=== PATIENT | female | born 1980 | race Caucasian/White ===

== ENCOUNTER → 2018-11-09 | Outpatient (CLI) | payer OTHER | LOC: EH 16:03 → RAD 16:03 | DX: Z02.1 Encounter for pre-employment examination (principal) ==

== ENCOUNTER 2019-08-25 12:52 | Inpatient (IN) | payer OTHER ==
[~2019-08-25] VITALS: Ht 167.6 cm; Wt 72.6 kg
[~2019-08-25 12:52] MED LIST: ASA81BEC PO; CARVEDILOL3.125 MG PO; COZAAR 50 MG TA50 M1 PO; KEPPRA 500 MG500 M1 PO; MINOCIN50 MG PO; PACERONE 200 M200 M1 PO; PEPCID20 MG PO; PREDNISONE 20 M20 M1 PO; VITAMIN B-1100 M2 PO
[2019-08-25] MEDS ORDERED: POTASSIUM CHLO10 ME1 PO (12:54)
--- NOTE | 2019-08-25 16:06 | NUR ---
PT ARRIVED AT 1520 FROM CCU. VITALS REMAIN STABLE. PT DENIES PAIN AT THIS TIME. PT ALERT AND ORIENTED *4. LEFT CHEST INCISION (PACEMAKER SITE) HEALING, SITE IS INTACT AND NO DRAINAGE NOTED. PT UP WITH 1 SBA, GB AND TOLERATED WELL. HOURLY ROUNDING. Q1H VISUAL CHECKS. CALL LIGHT WITHIN REACH
[2019-08-25 17:06] VITALS: BP 110/74
[2019-08-25 19:43] VITALS: BP 118/67
--- NOTE | 2019-08-26 03:02 | NUR ---
UP TO BATHROOM WITH STANDBY ASSIST, IMMOBILIZER IN PLACE. ICD PACEMAKER WITH DERMABOND OPEN TO AIR, DRY, AND INTACT. RIGHT FOREARM SALINE LOCK CDI.
[2019-08-26 06:24] LABS: HEMATOCRIT 32.6 % (37.0-47.0); HEMOGLOBIN 10.8 gm/dL (12.0-15.0); MCH 39.2 pg (26.0-34.0); MCHC 33.2 g/dL (28.0-37.0); RBC 2.76 mil/uL (4.20-5.00); RDW 13.7 % (10.5-14.5); WBC 5.7 thou/uL (4.0-11.0)
[2019-08-26 06:41] LABS: CALCIUM 9.2 mg/dL (8.5-10.1); POTASSIUM 3.4 mmol/L (3.5-5.1)
[2019-08-26 10:15] VITALS: BP 116/81
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
--- NOTE | 2019-08-26 15:59 | NUR ---
ASSUMED CARES AT 0700. PT AWAKE, ALERT AND ORIENTED*4. C/O MILD LEFT CHEST DISCOMFORT (AROUND ICD SITE). ICD SITE RED, PROVIDER AWARE AND ORDERS RECEIVED. LEFT ARM IMMOBILIZER ON WITH ACTIVITY. PT PARTCIPATED IN ALL THERAPIES AND TOLERATED WELL. Q1H VISUAL CHECKS. CALL LIGHT WITHIN REACH. FALL PRECAUTIONS IN PLACE
[2019-08-26 19:50] VITALS: BP 108/73
--- NOTE | 2019-08-27 03:17 | NUR ---
ASSESSED AT START OF SHIFT A&O4. ICD DRESSING IN LFT UPPER CHEST CAHNGED AND NEW DRESSING INTACT SIGHT LOOKED SLIGHTLY RED. PT UP TO THE BATHROOM WITH SBA. IMMOBILIZER BRACE ON FOR THE NIGHT. WILL CONT TO MONITOR TILL EOS.
[2019-08-27 08:00] VITALS: BP 109/69
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
[2019-08-27 19:54] VITALS: BP 118/62
--- NOTE | 2019-08-28 00:03 | NUR ---
PT ALERT AND ORIENTED X 4. MODIFIED INDEPENDENT IN ROOM WITHOUT DIFFICULTY. LEFT CHEST PACEMAKER INCISION C/D/I. GAUZE DRESSING PLACED OVER INCISION AT HS. LEFT ARM IMMOBILIZER ON. PT DENIES PAIN OR DISCOMFORT. SLEEPING PILL GIVEN AT HS. PT APPEARS TO BE SLEEPING ON HOURLY ROUNDS.
[2019-08-28 10:40] VITALS: BP 106/63
--- NOTE | 2019-08-28 10:47 | NUR ---
ASSUMED CARES AT 0700. REPORTS SLEPT GOOD LAST NIGHT WITH BENADRYL. NO BENADRYL ORDER TONIGHT. PT REPORTS HAS DIFFICULTY TO SLEEP AT NIGHT. PT AWAKE, ALERT AND ORIENTEDX4. ABLE TO VOICE HER NEEDS WITH ENCOURAGEMENT. C/O MILD LEFT CHEST DISCOMFORT (AROUND ICD SITE). RATES PAIN 3/10, HAS NO ORDER FOR TYLENOL.ICD SITE RED BUT INTACT. LEFT ARM IMMOBILIZER ON WITH ACTIVITY. PT PARTCIPATED IN ALL THERAPIES AND TOLERATED WELL. OFFERED SUPPORTIVE CARE. ENCOURAGE PT TO VOICE HER NEEDS. PT'S BS HAS BEEN STABLE. LAST DOSE STEROID WILL BE TOMORROW. HAS IV ON LEFT FA. CONTINUE TO BE ON CEFTRIAXONE. CALLED AND ASKED DR. BUCIO HOW LONG PT HAS TO BE ON IV ABT. HE WILL LOOK INTO IT. OBTAINED ORDER TO D/C ACHS. PRN TYLENOL AND MELATONIN FOR TONIGHT. PT UP M.I IN ROOM. REASSESSMENT PER CHART. REPORT HAD BM THIS AM. SKIN INTACT, JUST HAS BRUISES ON BOTH ARMS. MORNING MEDS GIVEN WITH YOGURT. PRN TYLENOL GIVEN. DISCUSSED ABOUT CARE PLAN FOR TODAY AND INFORMED PT ABOUT SLEEPING PILL TONIGHT HAS BEEN ORDERED. Q1H VISUAL CHECKS. CALL LIGHT WITHIN REACH. WILL CONTINUE TO MONITOR.
--- NOTE | 2019-08-28 20:00 | NUR ---
OFFERED AND ACCEPTED MOVE TO A ROOM (501) FURTHER AWAY FROM NURSE STATION. PLAN TO GIVE MELATONIN 5 MG AND WE WILL ASK IN THE MORNING IF SHE HAS HAD A BETTER NIGHT'S SLEEP. AMBULATED TO HE NEW ROOM AND IS MODIFIED INDEPENDENT IN ROOM
[2019-08-28 20:51] VITALS: BP 103/63
[2019-08-29 09:05] VITALS: BP 115/73
--- NOTE | 2019-08-29 15:23 | NUR ---
ASSUMED CARE AT 0700, PT A&O X 4, NO ACUTE DISTRESS NOTED. VS STABLE, O2 WNL ON RA. MOD-I IN ROOM, AMBULATES WITHOUT ASSISTANCE. IV TO RFA, PACEMAKER TO L CHEST INTACT, IMMOBILIZER TO L ARM. PT TOLERATES [facility] SOFT DIET AND MEDS IN YOGHURT. LAST BM 08/28/19. BED IN LOWEST POSITION, CALL LIGHT WITHIN REACH, WILL CONTINUE TO MONITOR PER POC.
[2019-08-29 20:00] VITALS: BP 98/63
--- NOTE | 2019-08-30 01:58 | NUR ---
PT ASSESSMENT DONE AND VSS. MEDS GIVEN AND VSS. WEARING INOBILIZER ON L ARM OVERNIGHT. MOD I. HOURLY ROUNDING. CALL LIGHT IN PLACE. WILL CONTINUE TO MONITOR.
[2019-08-30 07:30] VITALS: BP 130/86
[2019-08-30 08:49] VITALS: BP 130/86
--- NOTE | 2019-08-30 09:01 | NUR ---
ASSUMED CARES AT 0700. REPORTS DIDN'T SLEEP WELL LAST NIGHT TOOK MELATONIN 5MG MAY ASK DOCTOR TO ADJUST SLEEPING AID. PT AWAKE, ALERT AND ORIENTEDX4. ABLE TO VOICE HER NEEDS WITH ENCOURAGEMENT. C/O MILD LEFT CHEST DISCOMFORT (AROUND ICD SITE). RATES PAIN 2/10 AND HEADACHE 4/10, PRN TYLENOL GIVEN. ICD SITE RED BUT INTACT. CONTINUE TO BE ON IV CEFTRIAXONE. IV WAS OUT LAST NIGHT. WILL ASK DOCTOR TO SEE IF SHE STILL NEED TO BE ON IV ABT. PT IS A HARD STICK. LEFT ARM IMMOBILIZER ON WITH ACTIVITY. HER GOAL IS TO PARTCIPATE IN ALL THERAPIES. OFFERED SUPPORTIVE CARE. ENCOURAGE PT TO VOICE HER NEEDS. MEDS GIVEN WITH YOGURT AND TOLERATE WELL. CONTINUE TO BE ON [facility]. SHE WISHES TO BE UPGRADE HER DIET TODAY.PT UP TO DINNING ROOM FOR BREAKFAST. REQUESTS IF SHE CAN BE M.I IN THE UNIT WELL. Q1H VISUAL CHECKS. CALL LIGHT WITHIN REACH. WILL CONTINUE TO MONITOR.
[2019-08-30 12:08] LABS: HEMATOCRIT 44.2 % (37.0-47.0); HEMOGLOBIN 14.4 gm/dL (12.0-15.0); MCH 38.2 pg (26.0-34.0); MCHC 32.5 g/dL (28.0-37.0); MCV 117.6 fL (80.0-100.0); RBC 3.76 mil/uL (4.20-5.00); RDW 13.4 % (10.5-14.5); WBC 8.2 thou/uL (4.0-11.0)
[2019-08-30 12:20] LABS: CALCIUM 9.9 mg/dL (8.5-10.1); CREATININE 1.2 mg/dL (0.6-1.0); POTASSIUM 3.9 mmol/L (3.5-5.1)
[2019-08-30 19:08] VITALS: BP 90/54
--- NOTE | 2019-08-30 23:50 | NUR ---
PT ASSESSMENT DONE AND VSS. MEDS GIVEN AND WELL TOLERATED. MOD I IN ROOM. SLEEPING BETTER WITH STRONGER DOSE OF MELATONIN. HOURLY ROUNDING. CALL LIGHT IN REACH. WILL CONTINUE TO MONITOR.
[2019-08-31 07:30] VITALS: BP 108/71
--- NOTE | 2019-08-31 10:58 | NUR ---
ASSUMED CARES AT 0700. REPORTS SLEEP WELL LAST NIGHT TOOK MELATONIN 10MG. SHE SAID IT HELPS. PT AWAKE, ALERT AND ORIENTEDX4. ABLE TO VOICE HER NEEDS WITH ENCOURAGEMENT. C/O MILD LEFT CHEST DISCOMFORT (AROUND ICD SITE). ICD SITE RED BUT INTACT. LEFT ARM IMMOBILIZER ON WITH ACTIVITY. HER GOAL IS TO PARTCIPATE IN ALL THERAPIES. OFFERED SUPPORTIVE CARE. ENCOURAGE PT TO VOICE HER NEEDS. MEDS GIVEN WITH YOGURT AND TOLERATE WELL. M.I IN ROOM WITHOUT DEVICE, WALKS WITH STAFF TO DINNING ROOM FOR MEALS. CONTINUE TO BE ON [facility]. Q1H VISUAL CHECKS. CALL LIGHT WITHIN REACH. WILL CONTINUE TO MONITOR.
--- NOTE | 2019-08-31 12:48 | NUR ---
team meeting, recommendation: dc , restart aa and prior treatment with sponsor. no driving until cleared with primary or cardiac. has safe net packet for primary care follow ups.
[2019-08-31 19:00] VITALS: BP 95/64
--- NOTE | 2019-09-01 01:12 | NUR ---
PT ALERT AND ORIENTED X 4. MODIFIED INDEPENDENT IN ROOM WITHOUT DIFFICULTY. INCISION LEFT CHEST C/D/I. C/O SORENESS AT INCISION SITE. PT APPEARS TO BE SLEEPING ON HOURLY ROUNDS.
[2019-09-01 06:50] LABS: CREATININE 1.1 mg/dL (0.6-1.0); POTASSIUM 4.1 mmol/L (3.5-5.1)
[2019-09-01 08:21] VITALS: BP 105/79
[2019-09-01] MEDS ORDERED: KEFLEX500 M1 PO (09:51)
[2019-09-01] MEDS ORDERED: COZAAR 25 MG TA25 M1 PO (09:51)
--- NOTE | 2019-09-01 11:02 | NUR ---
ASSUMED CARES AT 0700. PT AWAKE, ALERT AND ORIENTED*4. DENIES PAIN. VITALS REMAIN STABLE. PACEMAKER SITE REMAINS DRY AND INTACT, PT VERBALIZES SORENESS AROUND SITE. PT REMAINS MODIFIED IND IN ROOM AND HALLWAY AND TOLERATED WELL. PT TO DC TODAY, PT TEACHING TO BE COMPLETED PRIOR TO DC. Q1H VISUAL CHECKS. CALL LIGHT WITHIN REACH.
[2019-09-01 11:10] VITALS: BP 105/79
--- NOTE | 2019-09-03 16:22 | H ---
[facility] [place] [address] HISTORY AND PHYSICAL Name: SHWETA COOPER Room #: 501-[address] 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 She was given CPR and intubated, found to have an ejection fraction of 30%, seen by multiple senior billing consultant physicians. She was extubated on 08/19/2019. She underwent ICD placement on 08/23/2019. She has had significant electrolyte abnormalities, concerns for seizure and has been on Keppra. She has a history of heavy ETOH abuse and was on withdrawal/replacement protocols. LFTs are elevated. She was transitioned from amiodarone IV to amiodarone p.o. She was noted to have cognitive deficits with acute metabolic/hypoxic encephalopathy. She has been admitted for acute in-hospital inpatient rehabilitation. Please see the full history and physical. As far as prior medical history, allergies, social history and habits: Please see the full history and physical. I agree with the documentation, examination, assessment and plan as noted in the full history and physical. MEDICATIONS: Please see the full MAR. REVIEW OF SYSTEMS: No specific complaints of chest pain, shortness of breath or abdominal discomfort. PHYSICAL EXAMINATION: GENERAL: A 39-year-old white female, in no obvious distress. The patient has a definite delay in her responses, seems unsure in her answers, decreased memory at 5 minutes. VITAL SIGNS: Last recorded temperature 36.8, pulse 59, respirations 22 and blood pressure 116/81. HEENT: Facies appeared symmetric. CHEST: Sounded clear to auscultation. She does have the left implantable cardiac defibrillator incision in place. EXTREMITIES: Only limited tested her left proximal upper extremity. She appears to have decent elbow, wrist and hand range of motion on the left. Functional range of motion of the right upper extremity with strength probably a grade 4-/5. CARDIOVASCULAR: Regular rate and rhythm. [facility] [address] [place] [address] HISTORY AND PHYSICAL Name: SHWETA COOPER Room #: 501-A [facility] IN M.R.#: [id number] Admission: 08/25/19 Attend Phys: King Hardy MD Discharge: 09/01/19 Date of : 78 Report #: [id number] ABDOMEN: Bowel sounds positive, nontender. GENITOURINARY AND RECTAL: Deferred. NEUROLOGIC: Lower extremities examination, functional range of motion, strength is probably a grade 4-/5. No pedal edema. DTRs are probably 1. She is min assist coming to stand. She is ambulating short distances without a device. She does need min assist. ASSESSMENT: A 39-year-old female with the following problem list: 1. Acute metabolic/hypoxic encephalopathy. 2. Acute respiratory failure, resolving. 3. Status post cardiac arrest with implantable cardiac defibrillator placement on 08/23/2019. 4. Electrolyte abnormalities. 5. History of ETOH abuse. 6. Question of seizure disorder. 7. Elevated LFTs. 8. History of gastric bypass. 9. History of cholecystectomy. 10. Thrombocytopenia. PLAN: The patient has been admitted for acute in-hospital inpatient rehabilitation. From a postadmission physician evaluation perspective, there are no relevant changes since the preadmission screening. Please see the above review of prior and current medical and functional conditions and comorbidities. Please see the patient's previous and current functional status. As far as risk of complications, she has multiple medical comorbidities as noted above. Initial plan of care involves the interdisciplinary acute inpatient rehabilitation program. Measurable functional goals would be for the patient to become modified independent with transfers, mobility, ADLs and to improve her overall cognition, so she can return back to the home setting. Prognosis is reasonably good with estimated length of stay probably at least 7-14 days pending progress. Potential barriers would include her above noted comorbidities and decreased functional status. <ELECTRONICALLY SIGNED> By: King Hardy MD 09/03/19 1622 [id number] King Hardy MD /nt
--- NOTE | 2019-09-03 16:22 | PLAN ---
[facility] [place] [address] REHAB UNIT PLAN OF CARE Name: SHWETA COOPER Room #: 501-A [facility] IN M.R.#: [id number] Admission: 08/25/19 Attend Phys: King Hardy MD Discharge: 09/01/19 Date of : 78 Report #: [id number] THIS REPORT FOR: //name// CC: King Hardy [facility] physician/PCP DATE OF SERVICE: 08/27/2019 PROGRESS NOTE/OVERALL PLAN OF CARE The patient seen back today in followup. She is in no distress. She is alert, pleasant. The implantable cardiac defibrillator incisional area appears to be intact. She is working in therapies with progress with transfers, standby assistance. Gait 450 feet without a device. Occupational therapy, lower body dressing is contact guard. Speech therapy, she has moderate memory deficits. ASSESSMENT: 1. Acute metabolic/hypoxic encephalopathy. 2. Acute respiratory failure, resolved. 3. Status post cardiac arrest with implantable cardiac defibrillator placement on 08/23/2019. 4. Electrolyte abnormalities. 5. History of ETOH abuse. 6. Question of seizure disorder. 7. Elevated LFTs. 8. History of gastric bypass. 9. History of cholecystectomy. PLAN: The overall plan of care is based on the preadmission screen, post-admission physician evaluation and information garnered from therapy assessments. 1. Estimated length of stay is probably over the next 5-10 days pending progress. 2. Medical prognosis is reasonably good. 3. Anticipated interventions includes the interdisciplinary acute inpatient rehabilitation program. 4. Anticipated functional outcomes would be for the patient to become modified independent with transfers, mobility, ADLs, cognition, so that she can return back to the home setting. 5. Discharge destination would be back home where she lives with her family members. Her mother is supportive. 6. Expected therapy by discipline includes PT, OT, and speech 1 hour per day [address] [address] REHAB UNIT PLAN OF CARE Name: SHWETA COOPER Room #: 501-A [facility] IN [facility].#: [id number] Admission: 08/25/19 Attend Phys: King Hardy MD Discharge: 09/01/19 Date of : 78 Report #: [id number] each five days a week throughout the duration of the acute inpatient rehabilitation stay. <ELECTRONICALLY SIGNED> By: King Hardy MD 09/03/19 1622 [id number] King Hardy MD /[facility]
== END 2019-09-01 13:05 | disposition home or self-care (01) | DRG 70 ==
LOC: ENTRNSPT 09-01 12:48 → EDTRNSPTSTS 09-01 12:49
PROVIDERS: Hospitalist; ADMIT Physical Medicine & Rehabilitation
DX: G93.41 Metabolic encephalopathy (principal); J96.01 Acute respiratory failure with hypoxia; K76.6 Portal hypertension; G93.1 Anoxic brain damage, not elsewhere classified; D69.6 Thrombocytopenia, unspecified; F31.9 Bipolar disorder, unspecified; E87.6 Hypokalemia; E83.42 Hypomagnesemia; F10.10 Alcohol abuse, uncomplicated; R74.0 Nonspecific elevation of levels of transaminase and lactic acid dehydrogenase [LDH]; K76.0 Fatty (change of) liver, not elsewhere classified; D75.89 Other specified diseases of blood and blood-forming organs; Z95.810 Presence of automatic (implantable) cardiac defibrillator; Z90.49 Acquired absence of other specified parts of digestive tract; Z98.84 Bariatric surgery status
CPT/HCPCS: 10112

== ENCOUNTER → 2019-12-08 | Outpatient (CLI) | payer OTHER ==
[~2019-12-08] MED LIST changes: +COZAAR 25 MG TA25 M1 PO; +KEFLEX500 M1 PO; +POTASSIUM CHLO10 ME1 PO
== END ==
LOC: SJCVCIMAG 12:49
DX: I46.9 Cardiac arrest, cause unspecified (principal); I49.01 Ventricular fibrillation; I42.0 Dilated cardiomyopathy; F10.10 Alcohol abuse, uncomplicated

== ENCOUNTER → 2020-09-04 | Outpatient (CLI) | payer OTHER | LOC: SJCVCIMAG 13:47 | PROVIDERS: ATTEND Internal Medicine Cardiovascular Disease | DX: I45.81 Long QT syndrome (principal); I10 Essential (primary) hypertension; I42.9 Cardiomyopathy, unspecified; Z79.82 Long term (current) use of aspirin; Z79.899 Other long term (current) drug therapy ==

== ENCOUNTER → 2021-01-01 | Outpatient (CLI) | payer OTHER | LOC: SJCVC 11:48 | PROVIDERS: ATTEND Internal Medicine | DX: I49.01 Ventricular fibrillation (principal) ==

== ENCOUNTER → 2021-01-03 | Outpatient (CLI) | payer OTHER | LOC: SJCVC 14:08 | PROVIDERS: ATTEND Internal Medicine Cardiovascular Disease | DX: I46.9 Cardiac arrest, cause unspecified (principal); I49.01 Ventricular fibrillation; I10 Essential (primary) hypertension; I42.9 Cardiomyopathy, unspecified; Z90.49 Acquired absence of other specified parts of digestive tract; Z95.810 Presence of automatic (implantable) cardiac defibrillator; Z79.82 Long term (current) use of aspirin; Z79.899 Other long term (current) drug therapy; Z82.49 Family history of ischemic heart disease and other diseases of the circulatory system ==

== ENCOUNTER → 2021-08-22 | Outpatient (CLI) | payer OTHER | LOC: SJCVCIMAG 06:30 | PROVIDERS: ATTEND Internal Medicine Cardiovascular Disease | DX: I08.1 Rheumatic disorders of both mitral and tricuspid valves (principal); I49.01 Ventricular fibrillation; I46.2 Cardiac arrest due to underlying cardiac condition; I42.9 Cardiomyopathy, unspecified; I10 Essential (primary) hypertension; Z82.49 Family history of ischemic heart disease and other diseases of the circulatory system; Z72.89 Other problems related to lifestyle; Z79.82 Long term (current) use of aspirin; Z79.899 Other long term (current) drug therapy ==